=== PATIENT | female | born 1945 | race Caucasian/White ===

== ENCOUNTER 2020-11-29 07:11 | Day surgery (SDC) | payer MEDICARE ==
[~2020-11-29] VITALS: Ht 165.1 cm; Wt 71.6 kg
[2020-11-29] MEDS ORDERED: COZAAR 25MG25 MG/TAB PO (08:24)
[2020-11-29] MEDS ORDERED: LIPITOR20 MG PO (08:25)
[2020-11-29] MEDS ORDERED: MASON NATURAL S1 CAP (08:26)
[2020-11-29 08:32] VITALS: BP 132/68; PULSE 53; TEMP 97.6
[2020-11-29 09:40] VITALS: BP 109/80; PULSE 50; TEMP 97.6
--- NOTE | 2020-11-29 09:40 | NUR ---
PATIENT TO [facility] 2 POST PROCEDURE VIA CART BY SALINAS CARTER. AMBULATES TO CHAIR WITH ASSIST OF ONE. VITAL SIGNS DONE. REPORT RECEIVED FROM JR NIÑO. MADE COMFORTABLE IN CHAIR. GIVEN COFFEE/WATER TO DRINK AND MUFFIN TO EAT. NO COMPLAINTS.
[2020-11-29 09:45] VITALS: BP 115/67; PULSE 47
[2020-11-29 10:00] VITALS: BP 108/67; PULSE 49
--- NOTE | 2020-11-29 10:00 | NUR ---
PATIENT RESTING IN CHAIR. NO COMPLAINTS.
[2020-11-29 10:15] VITALS: BP 112/62; PULSE 48
--- NOTE | 2020-11-29 10:15 | NUR ---
Pt ready for discharge. No complaints voiced by pt.
[2020-11-29 10:30] VITALS: BP 107/69; PULSE 48
--- NOTE | 2020-11-29 10:50 | NUR ---
Discharge instructions given to pt. Handed to her are a thank you card, discharge instructions, procedural information, and a procedural photo sheet. All questions answered to her satisfaction.
--- NOTE | 2020-11-29 10:57 | NUR ---
Pt transferred out of hospital via wheelchair and this RN to private vehicle driven by daughter.
== END 2020-11-29 10:57 | disposition home or self-care (01) ==
LOC: SDCO 07:11
DX: K57.30 Diverticulosis of large intestine without perforation or abscess without bleeding (principal); Z86.010 Personal history of colon polyps; I10 Essential (primary) hypertension; M19.90 Unspecified osteoarthritis, unspecified site; Z20.820 Contact with and (suspected) exposure to varicella; M85.80 Other specified disorders of bone density and structure, unspecified site; Z90.710 Acquired absence of both cervix and uterus; E78.2 Mixed hyperlipidemia; Z23 Encounter for immunization; Z96.612 Presence of left artificial shoulder joint; Z96.651 Presence of right artificial knee joint; Z20.822 Contact with and (suspected) exposure to COVID-19
CPT/HCPCS: J2704; J3010; J7120

== ENCOUNTER → 2021-02-15 | Outpatient (CLI) | payer MEDICARE ==
[~2021-02-15] MED LIST: COZAAR 25MG25 MG/TAB PO; LIPITOR20 MG PO; MASON NATURAL S1 CAP
== END ==
LOC: MC.RAD 10:50
DX: Z12.31 Encounter for screening mammogram for malignant neoplasm of breast (principal); N63.10 Unspecified lump in the right breast, unspecified quadrant

== ENCOUNTER → 2021-02-25 | Outpatient (CLI) | payer MEDICARE | LOC: MC.RAD 09:00 | DX: N63.10 Unspecified lump in the right breast, unspecified quadrant (principal) ==

== ENCOUNTER → 2021-08-29 | Outpatient (CLI) | payer MEDICARE | LOC: MC.RAD 08-05 09:00 | DX: N63.10 Unspecified lump in the right breast, unspecified quadrant (principal) ==